=== PATIENT | female | born 1955 | race Caucasian/White ===

== ENCOUNTER 2016-06-03 10:05 | Emergency (ER) | payer MEDICAID ==
--- NOTE | 2016-06-03 10:11 | ER Document Report ---
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 chest pain substernal stabbing pain, 3/5 in severity. intermittent pain. not currently in pain I have greeted and performed a rapid initial assessment of this patient. A comprehensive ED assessment and evaluation of the patient, analysis of test results and completion of the medical decision making process will be conducted by additional ED providers. - Related Data Allergies/Adverse Reactions: Penicillins Allergy (Verified 06/03/16 10:08)
[2016-06-03] MEDS ORDERED: ASPIRIN 81 MG TABLET, CHEWABLE PO ONE (10:12)
--- NOTE | 2016-06-03 11:05 | ER Document Report ---
ED General - General Chief Complaint: Other Stated Complaint: POSSIBLE HEART PROBLEM Time seen by provider: 11:02 Mode of Arrival: Ambulatory Information source: Patient Notes: This is a 61-year-old female with a history of coronary artery disease and an ischemic cardiomyopathy (status post Timoteo to DR defibrillator implantation in January 2010) who basically presents to the emergency room with concerns for battery power running out. Patient states that at 9 AM, she received 3 alarm tones from the defibrillator. She states that she had some sharp chest pain" lasting seconds" shortly thereafter. She denies having any electrical discharge from the defibrillator. The defibrillator has gone off in the past so she does know what that feels like. Other than this, the patient states she is feeling relatively well. She is visiting from [place]. TRAVEL OUTSIDE OF THE [place] IN LAST 30 DAYS: No - HPI Onset: This morning Onset/Duration: Sudden Quality of pain: No pain Severity: None Pain Level: Denies Associated symptoms: None Exacerbated by: Denies Relieved by: Denies Similar symptoms previously: No Recently seen / treated by doctor: No - Related Data Allergies/Adverse Reactions: Penicillins Allergy (Verified 06/03/16 10:08) Past Medical History - General Information source: Patient - Social History Smoking Status: Current Every Day Smoker Cigarette use (# per day): Yes - half pack per day Chew tobacco use (# tins/day): No Frequency of alcohol use: None Drug Abuse: None Lives with: Family Family History: Reviewed & Not Pertinent Patient has suicidal ideation: No Patient has homicidal ideation: No - Past Medical History Cardiac Medical History: Reports: Hx Coronary Artery Disease Pulmonary Medical History: Reports: None EENT Medical History: Reports: None Neurological Medical History: Reports: None Endocrine Medical History: Reports: None Renal/ Medical History: Reports: None. Denies: Hx Peritoneal Dialysis Malignancy Medical History: Reports: None GI Medical History: Reports: None Musculoskeltal Medical History: Reports None Skin Medical History: Reports None Psychiatric Medical History: Reports: None Traumatic Medical History: Reports: None Infectious Medical History: Reports: None Past Surgical History: Reports: Other - Defibrillator placement Review of Systems - Review of Systems Constitutional: denies: Chills, Fever EENT: No symptoms reported Cardiovascular: See HPI Respiratory: No symptoms reported Gastrointestinal: No symptoms reported Genitourinary: No symptoms reported Female Genitourinary: No symptoms reported Musculoskeletal: See HPI Skin: No symptoms reported Hematologic/Lymphatic: No symptoms reported Neurological/Psychological: No symptoms reported Physical Exam - Vital signs Vitals: Pulse Ox 98 06/03/16 11:35 Notes: Physical exam: GENERAL: 61-year-old female, alert and oriented 3, no acute distress. HEAD: Atraumatic, normocephalic. EYES: Pupils equal round and reactive to light, extraocular movements intact, sclera anicteric, conjunctiva are normal. ENT: TMs normal, nares patent, oropharynx clear without exudates. Moist mucous membranes. NECK: Normal range of motion, supple without lymphadenopathy or JVD. LUNGS: Breath sounds clear to auscultation bilaterally and equal. No wheezes rales or rhonchi. HEART: Regular rate and rhythm without murmurs, rubs or gallops. ABDOMEN: Soft, nontender, normoactive bowel sounds. No guarding, no rebound. No masses appreciated. EXTREMITIES: Normal range of motion, no pitting or edema. No clubbing or cyanosis. NEUROLOGICAL: Cranial nerves II through XII grossly intact. Normal speech, normal gait. PSYCH: Normal mood, normal affect. SKIN: Warm, Dry, normal turgor, no rashes or lesions noted. Course - Re-evaluation Re-evalutation: 06/03/16 15:47 Discussed case with Kenneth at [employer] ([phone]). We did transmit the machine interrogation of the patient's pacemaker/defibrillator. It is functioning appropriately. There has been no ventricular tachycardia. The pacemaker and defibrillator is at the end of life: which means [employer] guarantees a 3 months period of activity (left). Therefore, there is no emergent indication to transfer the patient today to heart center. However, replacement needs to be arranged before the 3 months is up. I've advised the patient to follow-up with her surface miner in the next few days to start the process for replacement. 06/03/16 19:59 - Vital Signs Vital signs: Temp Pulse Resp BP Pulse Ox 72 16 101/61 99 06/03/16 16:01 06/03/16 16:01 06/03/16 15:21 06/03/16 16:01 - Laboratory Result Diagrams: 06/03/16 11:00 06/03/16 11:00 Laboratory results interpreted by me: 06/03/16 06/03/16 11:00 11:00 RDW 14.4 H Plt Count 147 L Potassium 5.1 H - Diagnostic Test Radiology reviewed: Image reviewed, Reports reviewed - Chest x-ray shows no infiltrates Discharge - Discharge Clinical Impression: pacemaker at end-of-life Condition: Stable Disposition: HOME, SELF-CARE Additional Instructions: Recommendations: As we discussed, [employer] says thoroughly interrogated the defibrillator and we are at the end of life of the pacemaker/defibrillator. The company states that you have 3 months more of activity. Therefore, this is the period of time in which she would follow-up with your surface miner and arrange for replacement. You can expect to have these warning signals at 9 AM every morning. Follow-up with your surface miner in the next 2 days: Give the office a call tomorrow. Return to the emergency room for any chest pain, shortness of breath, dizziness or feeling faint.
[2016-06-03 11:15] LABS: ABSOLUTE BASOPHILS # (AUTO) 0.1 10^3/uL (0.0-0.2); ABSOLUTE EOSINOPHILS # (AUTO) 0.3 10^3/uL (0.0-0.6); ABSOLUTE LYMPHOCYTES (AUTO) 2.8 10^3/uL (0.5-4.7); ABSOLUTE MONOCYTES (AUTO) 0.5 10^3/uL (0.1-1.4); ABSOLUTE NEUT (AUTO) 4.4 10^3/uL (1.7-8.2); EOSINOPHILS % (AUTO) 3.1 % (0-6); HEMATOCRIT 40.3 % (36.0-47.0); HEMOGLOBIN 13.3 g/dL (12.0-15.5); HGB HCT DIFFERENCE -0.4; MEAN CORPUSCULAR HEMOGLOBIN 31.3 pg (27.0-33.4); MEAN CORPUSCULAR VOLUME 95 fl (80-97); RED BLOOD COUNT 4.24 10^6/uL (3.72-5.28); RED CELL DISTRIBUTION WIDTH 14.4 % (11.5-14.0); SEGMENTED NEUTROPHILS % (AUTO) 54.9 % (42-78)
[2016-06-03 11:38] LABS: ALANINE AMINOTRANSFERASE 23 U/L (9-52); ALBUMIN 4.1 g/dL (3.5-5.0); ALKALINE PHOSPHATASE 65 U/L (38-126); ANION GAP 9 (5-19); ASPARTATE AMINO TRANSFERASE 25 U/L (14-36); BILIRUBIN,TOTAL 0.7 mg/dL (0.2-1.3); BLOOD UREA NITROGEN 17 mg/dL (7-20); CALCIUM 9.5 mg/dL (8.4-10.2); CARBON DIOXIDE 28 mmol/L (22-30); CHLORIDE 104 mmol/L (98-107); CREATINE KINASE 41 U/L (30-135); CREATININE RESULT 0.91 mg/dL (0.52-1.25); GLUCOSE 84 mg/dL (75-110); POTASSIUM 5.1 mmol/L (3.6-5.0); TOTAL PROTEIN 6.7 g/dL (6.3-8.2)
[2016-06-03 11:51] LABS: CREATINE KINASE MB 0.62 ng/mL (<4.55)
[2016-06-03 11:53] LABS: TROPONIN I < 0.012 ng/mL
--- NOTE | 2016-06-03 12:22 | EKG REPORT ---
SEVERITY:- ABNORMAL ECG - SINUS RHYTHM NONSPECIFIC INTRAVENTRICULAR CONDUCTION DELAY : Confirmed by: Sam Garcia MD 03-Jun-2016 12:21:46
[2016-06-03 15:52] VITALS: BP 101/61
== END 2016-06-03 16:02 | disposition home or self-care (01) ==
LOC: ER 10:05
DX: Z45.018 Encounter for adjustment and management of other part of cardiac pacemaker (principal); R07.9 Chest pain, unspecified; I25.5 Ischemic cardiomyopathy; I25.10 Atherosclerotic heart disease of native coronary artery without angina pectoris; F17.210 Nicotine dependence, cigarettes, uncomplicated
CPT/HCPCS: 36415; 71010; 80053; 82550; 82553; 84484; 85025; 93005; 93010; 99284